=== PATIENT | female | born 1990 | race Caucasian/White ===

== ENCOUNTER 2018-01-16 22:37 | Emergency (ER) | payer SELFPAY ==
[~2018-01-16] VITALS: Ht 154.9 cm; Wt 54.5 kg
[~2018-01-16 22:37] MED LIST: AMOXICILLIN500 MG OR; AMOXICILLIN500 MG PO; AURALGAN OT; CEPHALEXIN500 MG PO; CIPRO500 MG OR; CIPROFLOXACN500 MG PO; DEPO-PROVER150 MG/ML IM; DIVALPROEX250 M1 OR; FERROUS FUM324 MG OR; FLUOXETINE10 MG PO; FLUTICASONE50 MCG; IMITREX100 M1 PO; IMITREX25 MG PO; LAMICTAL100 MG PO; LORTAB 5 OR; LORTAB 7.5-3251 TAB PO; METHOCARBAM500 MG PO; METOPROL TAR25 MG PO; MOTRIN800 MG PO; NAPROSYN500 MG PO; NYSTATIN100000 M1 MT; PRENATA3 OR; PROMETHAZINE HC25 MG PO; PROVENTIL HFA IN; TOPIRAMATE50 MG PO; TRAMADOL HCL50 MG PO; TRAZODONE50 MG PO; TRIMOX500 MG PO; ULTRAM50 MG OR; ULTRAM50 MG PO; VISTARIL 50MG C50 M1 PO; ZOFRAN ODT4 MG OR; [UNRECOGNIZED DRUG - REMARK]
[2018-01-16 23:00] LABS: HEMATOCRIT 36.9 % (37.0-47.0); HEMOGLOBIN 12.7 g/dl (12.0-16.0); IMMATURE GRANULOCYTES 0.3 % (0.0-5.0); MEAN CELL VOLUME 87.2 fL CALC (80.0-100.0); MEAN CORPUSCULAR HGB CONC 34.4 g/L CALC (32.0-36.0); NEUT# 10.98 thou/uL (2.00-7.15); RED BLOOD COUNT 4.23 mill/uL (4.20-5.60); RED CELL DISTRI WIDTH 12.2 % (11.5-15.5)
[2018-01-16 23:13] LABS: ALBUMIN 4.1 g/dL (3.2-5.0); AMYLASE 46 u/l (30-110); ANION GAP 12 (6-22 (CALC)); BILIRUBIN, TOTAL 0.5 mg/dL (0.0-1.4); BUN 12 mg/dL (7-17); BUN/CREATININE RATIO 17 (12-20 (CALC)); CARBON DIOXIDE 26 mmol/l (22-30); CHLORIDE 103 mmol/l (95-108); CREATININE 0.7 mg/dL (0.5-1.0); GFR > 60 ML/MIN (>=60 (CALC)); GFR FOR AFR.AMER. > 60 ML/MIN (>=60 (CALC)); LIPASE 87 u/l (23-300); SGOT/AST 30 u/l (14-36); SGPT/ALT 37 u/l (9-52); SODIUM 137 mmol/l (137-146); TOTAL PROTEIN 7.2 g/dL (6.3-8.2)
[2018-01-16 23:14] LABS: ALKALINE PHOSPHATASE 113 u/l (38-126)
[2018-01-16 23:35] LABS: URINE BILIRUBIN - DIPSTICK NEGATIVE (NEGATIVE); URINE BLOOD DIPSTICK NEGATIVE (NEGATIVE); URINE CLARITY SL CLOUDY; URINE COLOR YELLOW; URINE GLUCOSE - DIPSTICK NEGATIVE (NEGATIVE); URINE KETONE NEGATIVE (NEGATIVE); URINE LEUK ESTERASE TRACE (NEGATIVE); URINE NITRITE - DIPSTICK NEGATIVE (Negative); URINE PROTEIN - DIPSTICK NEGATIVE (NEG-TRACE); URINE UROBILINOGEN - DIPSTICK 0.2 E.U./dL (0.2)
[2018-01-16 23:40] LABS: BARBITURATES NEGATIVE (NEGATIVE); COCAINE NEGATIVE (NEGATIVE); METHADONE NEGATIVE (NEGATIVE); OXCYCODONE NEGATIVE (NEGATIVE); TETRAHYDROCANNABIONOL POSITIVE (NEGATIVE); TRICYLIC ANTIDEPRESSANTS NEGATIVE (NEGATIVE)
[2018-01-17] MEDS ORDERED: CIPROFLOXACN500 MG PO (03:43)
[2018-01-17] MEDS ORDERED: MAGNESIUM296 ML/BTL PO (03:43)
[2018-01-17] MEDS ORDERED: TRAMADOL HCL50 MG PO (03:43)
[2018-01-17] MEDS ORDERED: METRONIDAZOL500 MG PO (03:43)
[2018-01-17 04:35] VITALS: BP 112/66
== END 2018-01-17 04:35 | disposition home or self-care (01) | DRG 392 ==
LOC: ED 22:37
PROVIDERS: Family Medicine
DX: K52.9 Noninfective gastroenteritis and colitis, unspecified (principal); K59.00 Constipation, unspecified; R10.11 Right upper quadrant pain; R11.0 Nausea; F17.210 Nicotine dependence, cigarettes, uncomplicated; N83.202 Unspecified ovarian cyst, left side; N83.201 Unspecified ovarian cyst, right side; K76.0 Fatty (change of) liver, not elsewhere classified
CPT/HCPCS: S0164

== ENCOUNTER 2018-01-20 16:21 | Emergency (ER) | payer SELFPAY ==
[~2018-01-20] VITALS: Ht 154.9 cm; Wt 55.0 kg
[~2018-01-20 16:21] MED LIST changes: +MAGNESIUM296 ML/BTL PO; +METRONIDAZOL500 MG PO
[2018-01-20 17:00] LABS: HEMATOCRIT 33.9 % (37.0-47.0); HEMOGLOBIN 11.5 g/dl (12.0-16.0); IMMATURE GRANULOCYTES 0.4 % (0.0-5.0); MEAN CELL VOLUME 88.5 fL CALC (80.0-100.0); MEAN CORPUSCULAR HGB CONC 33.9 g/L CALC (32.0-36.0); NEUT# 8.61 thou/uL (2.00-7.15); RED BLOOD COUNT 3.83 mill/uL (4.20-5.60)
[2018-01-20 17:13] LABS: ALBUMIN 3.6 g/dL (3.2-5.0); ALKALINE PHOSPHATASE 93 u/l (38-126); ANION GAP 13 (6-22 (CALC)); BILIRUBIN, TOTAL 0.2 mg/dL (0.0-1.4); BUN 10 mg/dL (7-17); BUN/CREATININE RATIO 14 (12-20 (CALC)); CARBON DIOXIDE 28 mmol/l (22-30); CHLORIDE 104 mmol/l (95-108); CREATININE 0.7 mg/dL (0.5-1.0); GFR > 60 ML/MIN (>=60 (CALC)); GFR FOR AFR.AMER. > 60 ML/MIN (>=60 (CALC)); LIPASE 75 u/l (23-300); POTASSIUM 3.7 mmol/l (3.5-5.1); SGOT/AST 20 u/l (14-36); SGPT/ALT 32 u/l (9-52); SODIUM 142 mmol/l (137-146); TOTAL PROTEIN 6.5 g/dL (6.3-8.2)
[2018-01-20] MEDS ORDERED: CIPROFLOXACN500 MG PO (18:27)
[2018-01-20] MEDS ORDERED: BENTYL10 MG PO (18:27)
[2018-01-20] MEDS ORDERED: TORADOL PO (18:27)
[2018-01-20 18:56] VITALS: BP 111/64
== END 2018-01-20 18:56 | disposition home or self-care (01) | DRG 392 ==
LOC: ED 16:21
PROVIDERS: Emergency Medicine
DX: R10.84 Generalized abdominal pain (principal); I10 Essential (primary) hypertension; J45.909 Unspecified asthma, uncomplicated; Z91.14 Patient's other noncompliance with medication regimen; F17.210 Nicotine dependence, cigarettes, uncomplicated
CPT/HCPCS: Q9967

== ENCOUNTER 2018-04-19 17:03 | Emergency (ER) | payer SELFPAY ==
[~2018-04-19] VITALS: Ht 154.9 cm; Wt 65.0 kg
[~2018-04-19 17:03] MED LIST changes: +BENTYL10 MG PO; +TORADOL PO
[2018-04-19] MEDS ORDERED: CLEOCIN300 MG PO (17:24)
[2018-04-19] MEDS ORDERED: TORADOL PO (17:25)
[2018-04-19 17:38] VITALS: BP 114/65
== END 2018-04-19 17:38 | disposition home or self-care (01) | DRG 603 ==
LOC: ED 17:03
DX: L02.12 Furuncle of neck (principal); I10 Essential (primary) hypertension; J45.909 Unspecified asthma, uncomplicated; F17.200 Nicotine dependence, unspecified, uncomplicated

== ENCOUNTER 2018-08-19 16:12 | Emergency (ER) | payer SELFPAY ==
[~2018-08-19] VITALS: Ht 154.9 cm; Wt 55.0 kg
[~2018-08-19 16:12] MED LIST changes: +CLEOCIN300 MG PO
[2018-08-19 16:46] VITALS: BP 115/65
== END 2018-08-19 18:25 | disposition left against medical advice (07) | DRG 951 ==
LOC: ED 16:12 → LWOBS 18:24
DX: Z91.19 Patient's noncompliance with other medical treatment and regimen (principal)

== ENCOUNTER 2018-09-10 02:31 | Emergency (ER) | payer SELFPAY ==
[~2018-09-10] VITALS: Ht 154.9 cm; Wt 52.3 kg
[2018-09-10] MEDS ORDERED: VENTOLIN HFA IN (02:46)
[2018-09-10 03:20] LABS: HEMATOCRIT 38.2 % (37.0-47.0); HEMOGLOBIN 12.8 g/dl (12.0-16.0); IMMATURE GRANULOCYTES 0.2 % (0.0-5.0); MEAN CELL VOLUME 86.6 fL CALC (80.0-100.0); MEAN CORPUSCULAR HGB CONC 33.5 g/L CALC (32.0-36.0); NEUT# 6.15 thou/uL (2.00-7.15); RED BLOOD COUNT 4.41 mill/uL (4.20-5.60); RED CELL DISTRI WIDTH 12.5 % (11.5-15.5)
[2018-09-10 03:34] LABS: ALBUMIN 4.1 g/dL (3.2-5.0); ALKALINE PHOSPHATASE 92 u/l (38-126); AMYLASE 45 u/l (30-110); ANION GAP 10 (6-22 (CALC)); BILIRUBIN, TOTAL 0.2 mg/dL (0.0-1.4); BUN 14 mg/dL (7-17); BUN/CREATININE RATIO 19 (12-20 (CALC)); CARBON DIOXIDE 26 mmol/l (22-30); CHLORIDE 106 mmol/l (95-108); CREATININE 0.7 mg/dL (0.5-1.0); GFR > 60 ML/MIN (>=60 (CALC)); GFR FOR AFR.AMER. > 60 ML/MIN (>=60 (CALC)); LIPASE 125 u/l (23-300); POTASSIUM 3.5 mmol/l (3.5-5.1); SGOT/AST 26 u/l (14-36); SODIUM 139 mmol/l (137-146); TOTAL PROTEIN 6.6 g/dL (6.3-8.2)
[2018-09-10 05:46] LABS: URINE BILIRUBIN - DIPSTICK NEGATIVE (NEGATIVE); URINE BLOOD DIPSTICK NEGATIVE (NEGATIVE); URINE COLOR YELLOW; URINE GLUCOSE - DIPSTICK NEGATIVE (NEGATIVE); URINE KETONE NEGATIVE (NEGATIVE); URINE PH 7.5 (4.5-8.0); URINE PROTEIN - DIPSTICK NEGATIVE (NEG-TRACE); URINE UROBILINOGEN - DIPSTICK 0.2 E.U./dL (0.2)
[2018-09-10 05:50] LABS: URINE LEUK ESTERASE SMALL (NEGATIVE); URINE NITRITE - DIPSTICK POSITIVE (Negative)
[2018-09-10 05:52] LABS: BARBITURATES NEGATIVE (NEGATIVE); COCAINE NEGATIVE (NEGATIVE); METHADONE NEGATIVE (NEGATIVE); OXCYCODONE NEGATIVE (NEGATIVE); TETRAHYDROCANNABIONOL POSITIVE (NEGATIVE); TRICYLIC ANTIDEPRESSANTS NEGATIVE (NEGATIVE)
[2018-09-10 05:54] LABS: URINE BACTERIA MODERATE hpf; URINE RBC 0-2 RBC/hpf (0-5); URINE SQUAMOUS EPITHELIAL CELL MODERATE EPI/hpf (0-FEW)
[2018-09-10] MEDS ORDERED: PHENERGAN25 MG/TAB PO (05:57)
[2018-09-10 06:13] VITALS: BP 123/75
== END 2018-09-10 06:13 | disposition home or self-care (01) | DRG 392 ==
LOC: ED 02:31
PROVIDERS: Family Medicine
DX: K52.9 Noninfective gastroenteritis and colitis, unspecified (principal); F15.288 Other stimulant dependence with other stimulant-induced disorder; R10.84 Generalized abdominal pain; R11.2 Nausea with vomiting, unspecified; F17.210 Nicotine dependence, cigarettes, uncomplicated

== ENCOUNTER 2018-10-06 16:34 | Emergency (ER) | payer SELFPAY ==
[~2018-10-06] VITALS: Ht 154.9 cm; Wt 53.0 kg
[~2018-10-06 16:34] MED LIST changes: +PHENERGAN25 MG/TAB PO; +VENTOLIN HFA IN
[2018-10-06 17:28] LABS: HEMATOCRIT 38.2 % (37.0-47.0); HEMOGLOBIN 13.1 g/dl (12.0-16.0); IMMATURE GRANULOCYTES 0.3 % (0.0-5.0); MEAN CELL VOLUME 85.8 fL CALC (80.0-100.0); MEAN CORPUSCULAR HGB 29.4 pG CALC (26.0-32.0); MEAN CORPUSCULAR HGB CONC 34.3 g/L CALC (32.0-36.0); NEUT# 9.38 thou/uL (2.00-7.15); RED BLOOD COUNT 4.45 mill/uL (4.20-5.60); RED CELL DISTRI WIDTH 12.3 % (11.5-15.5)
[2018-10-06 17:46] LABS: ALBUMIN 4.3 g/dL (3.2-5.0); ALKALINE PHOSPHATASE 97 u/l (38-126); ANION GAP 16 (6-22 (CALC)); BILIRUBIN, TOTAL 0.6 mg/dL (0.0-1.4); BUN 15 mg/dL (7-17); BUN/CREATININE RATIO 25 (12-20 (CALC)); CARBON DIOXIDE 23 mmol/l (22-30); CHLORIDE 102 mmol/l (95-108); CREATININE 0.6 mg/dL (0.5-1.0); ETHYL ALCOHOL 0 mg/dl (0-30); GFR > 60 ML/MIN (>=60 (CALC)); GFR FOR AFR.AMER. > 60 ML/MIN (>=60 (CALC)); POTASSIUM 3.5 mmol/l (3.5-5.1); SGOT/AST 20 u/l (14-36); SODIUM 138 mmol/l (137-146)
[2018-10-06 20:40] LABS: URINE BILIRUBIN - DIPSTICK NEGATIVE (NEGATIVE); URINE BLOOD DIPSTICK NEGATIVE (NEGATIVE); URINE COLOR YELLOW; URINE GLUCOSE - DIPSTICK NEGATIVE (NEGATIVE); URINE KETONE TRACE mg/dL (NEGATIVE); URINE LEUK ESTERASE NEGATIVE (NEGATIVE); URINE NITRITE - DIPSTICK NEGATIVE (Negative); URINE PH 6.5 (4.5-8.0); URINE PROTEIN - DIPSTICK NEGATIVE (NEG-TRACE); URINE SPECIFIC GRAVITY <=1.005
[2018-10-06 20:43] LABS: COCAINE NEGATIVE (NEGATIVE)
[2018-10-06 20:44] LABS: BARBITURATES NEGATIVE (NEGATIVE); METHADONE NEGATIVE (NEGATIVE); OXCYCODONE NEGATIVE (NEGATIVE); TETRAHYDROCANNABIONOL NEGATIVE (NEGATIVE); TRICYLIC ANTIDEPRESSANTS NEGATIVE (NEGATIVE)
[2018-10-06] MEDS ORDERED: DOXYCYCL HYC100 MG PO (20:48)
[2018-10-06 21:36] VITALS: BP 110/63
== END 2018-10-06 21:32 | disposition home or self-care (01) | DRG 603 ==
LOC: ED 16:34
PROVIDERS: Family Medicine
PROC: 0H91XZZ Drainage of Face Skin, External Approach (ICD-10-PCS; principal; 2018-10-06)
DX: L03.213 Periorbital cellulitis (principal); L02.01 Cutaneous abscess of face; B95.62 Methicillin resistant Staphylococcus aureus infection as the cause of diseases classified elsewhere; S46.912A Strain of unspecified muscle, fascia and tendon at shoulder and upper arm level, left arm, initial encounter; M25.512 Pain in left shoulder; M54.2 Cervicalgia; M54.6 Pain in thoracic spine; M54.5 Low back pain; F19.10 Other psychoactive substance abuse, uncomplicated; F17.210 Nicotine dependence, cigarettes, uncomplicated; R50.9 Fever, unspecified; S00.83XA Contusion of other part of head, initial encounter; S50.12XA Contusion of left forearm, initial encounter; S40.022A Contusion of left upper arm, initial encounter; S60.222A Contusion of left hand, initial encounter; S40.012A Contusion of left shoulder, initial encounter; Y09 Assault by unspecified means; Y92.009 Unspecified place in unspecified non-institutional (private) residence as the place of occurrence of the external cause

== ENCOUNTER 2021-08-25 06:48 | Emergency (ER) | payer SELFPAY ==
[~2021-08-25] VITALS: Ht 154.9 cm; Wt 54.0 kg
[~2021-08-25 06:48] MED LIST changes: +DOXYCYCL HYC100 MG PO
[2021-08-25 07:34] LABS: HEMATOCRIT 39.4 % (37.0-47.0); IMMATURE GRANULOCYTES 0.1 % (0.0-5.0); MEAN CELL VOLUME 89.7 fL CALC (80.0-100.0); MEAN CORPUSCULAR HGB 29.6 pG CALC (26.0-32.0); NEUT# 11.38 thou/uL (2.00-7.15); RED BLOOD COUNT 4.39 mill/uL (4.20-5.60); RED CELL DISTRI WIDTH 12.6 % (11.5-15.5)
[2021-08-25 07:45] LABS: URINE BILIRUBIN - DIPSTICK NEGATIVE (NEGATIVE); URINE BLOOD DIPSTICK NEGATIVE (NEGATIVE); URINE COLOR YELLOW; URINE GLUCOSE - DIPSTICK NEGATIVE (NEGATIVE); URINE KETONE NEGATIVE (NEGATIVE); URINE PROTEIN - DIPSTICK NEGATIVE (NEG-TRACE); URINE SPECIFIC GRAVITY 1.015; URINE UROBILINOGEN - DIPSTICK 0.2 E.U./dL (0.2)
[2021-08-25 07:52] LABS: ALKALINE PHOSPHATASE 90 u/l (38-126); ANION GAP 13 (6-22 (CALC)); BILIRUBIN, TOTAL 0.4 mg/dL (0.0-1.4); BUN 9 mg/dL (7-17); BUN/CREATININE RATIO 16 (12-20 (CALC)); CARBON DIOXIDE 25 mmol/l (22-30); CHLORIDE 102 mmol/l (95-108); CREATININE 0.6 mg/dL (0.5-1.0); GFR > 60 ML/MIN (>=60 (CALC)); GFR FOR AFR.AMER. > 60 ML/MIN (>=60 (CALC)); LIPASE 33 u/l (23-300); POTASSIUM 3.7 mmol/l (3.5-5.1); SGOT/AST 27 u/l (14-36); SODIUM 137 mmol/l (137-146); TOTAL PROTEIN 6.8 g/dL (6.3-8.2)
[2021-08-25 07:52] LABS: URINE LEUK ESTERASE SMALL (NEGATIVE); URINE NITRITE - DIPSTICK POSITIVE (Negative)
[2021-08-25 07:54] LABS: URINE BACTERIA MANY hpf; URINE SQUAMOUS EPITHELIAL CELL FEW EPI/hpf (0-FEW)
[2021-08-25] MEDS ORDERED: BL IBUPROFEN200 MG PO (09:59)
[2021-08-25] MEDS ORDERED: OMNI-PAC300 MG PO (11:43)
[2021-08-25 11:54] VITALS: BP 98/64
== END 2021-08-25 12:02 | disposition home or self-care (01) | DRG 690 ==
LOC: ED 06:48
PROVIDERS: Family Medicine
DX: N39.0 Urinary tract infection, site not specified (principal); N83.202 Unspecified ovarian cyst, left side; I10 Essential (primary) hypertension; J45.909 Unspecified asthma, uncomplicated; F17.210 Nicotine dependence, cigarettes, uncomplicated; B96.20 Unspecified Escherichia coli [E. coli] as the cause of diseases classified elsewhere
CPT/HCPCS: Q9967

== ENCOUNTER 2021-12-22 19:15 | Emergency (ER) | payer SELFPAY ==
[2021-12-22] VITALS (7 sets, daily range): BP systolic 115–142; BP diastolic 54–90
[~2021-12-22] VITALS: Ht 154.9 cm; Wt 60.0 kg
[~2021-12-22 19:15] MED LIST changes: +BL IBUPROFEN200 MG PO; +OMNI-PAC300 MG PO
[2021-12-22 20:31] LABS: HEMATOCRIT 39.9 % (37.0-47.0); HEMOGLOBIN 13.3 g/dl (12.0-16.0); IMMATURE GRANULOCYTES 0.1 % (0.0-5.0); MEAN CELL VOLUME 90.3 fL CALC (80.0-100.0); MEAN CORPUSCULAR HGB 30.1 pG CALC (26.0-32.0); MEAN CORPUSCULAR HGB CONC 33.3 g/dL CAL (32.0-36.0); NEUT# 10.43 thou/uL (2.00-7.15); RED BLOOD COUNT 4.42 mill/uL (4.20-5.60); RED CELL DISTRI WIDTH 12.2 % (11.5-15.5)
[2021-12-22 20:48] LABS: ALKALINE PHOSPHATASE 75 u/l (38-126); ANION GAP 10 (6-22 (CALC)); BILIRUBIN, TOTAL 0.1 mg/dL (0.0-1.4); BUN 15 mg/dL (7-17); BUN/CREATININE RATIO 17 (12-20 (CALC)); CARBON DIOXIDE 22 mmol/l (22-30); CHLORIDE 109 mmol/l (95-108); CREATININE 0.8 mg/dL (0.5-1.0); GFR FOR AFR.AMER. > 60 ML/MIN (>=60 (CALC)); GFR OTHER RACES > 60 ML/MIN (>=60 (CALC)); POTASSIUM 3.9 mmol/l (3.5-5.1); SGOT/AST 24 u/l (14-36); SODIUM 137 mmol/l (137-146); TOTAL PROTEIN 6.5 g/dL (6.3-8.2)
[2021-12-22] MEDS ORDERED: AMOX/K CLAV875 M1 PO (22:26)
[2021-12-22] MEDS ORDERED: HYDROCO/APAP1 TA9 PO (22:29)
== END 2021-12-22 23:45 | disposition home or self-care (01) | DRG 605 ==
LOC: ED 19:15
PROVIDERS: Family Medicine
PROC: 0HQDXZZ Repair Right Lower Arm Skin, External Approach (ICD-10-PCS; principal; 2021-12-22)
DX: S51.851A Open bite of right forearm, initial encounter (principal); I10 Essential (primary) hypertension; J45.909 Unspecified asthma, uncomplicated; F17.200 Nicotine dependence, unspecified, uncomplicated; W54.0XXA Bitten by dog, initial encounter; Y92.007 Garden or yard of unspecified non-institutional (private) residence as the place of occurrence of the external cause
CPT/HCPCS: Q9967

== ENCOUNTER 2022-04-09 15:48 | Emergency (ER) | payer SELFPAY ==
[~2022-04-09] VITALS: Ht 154.9 cm; Wt 62.0 kg
[~2022-04-09 15:48] MED LIST changes: +AMOX/K CLAV875 M1 PO; +HYDROCO/APAP1 TA9 PO
[2022-04-09 15:59] VITALS: BP 114/77
[2022-04-09] MEDS ORDERED: BACTRIM DS1 TAB PO (16:03)
[2022-04-09] MEDS ORDERED: MOTRIN800 MG PO (16:03)
[2022-04-09 16:15] VITALS: BP 114/77
== END 2022-04-09 16:21 | disposition home or self-care (01) | DRG 603 ==
LOC: ED 15:48
DX: L02.412 Cutaneous abscess of left axilla (principal)

== ENCOUNTER → 2022-07-13 | Emergency (ER) | payer SELFPAY ==
[~2022-07-13] VITALS: Ht 154.9 cm; Wt 59.0 kg
[~2022-07-13] MED LIST changes: +ACYCLOVIR800 MG PO; +BACTRIM DS1 TAB PO; +EC-NAPROXEN500 MG PO; +[UNRECOGNIZED DRUG - OTHER] XX
[2022-07-13 20:38] VITALS: BP 99/55
[2022-07-13 20:45] VITALS: BP 99/55
== END | disposition home or self-care (01) | DRG 951 ==
LOC: ED 20:13 → LWOBS 20:18
DX: Z53.21 Procedure and treatment not carried out due to patient leaving prior to being seen by health care provider (principal)

== ENCOUNTER 2022-07-16 16:31 | Emergency (ER) | payer SELFPAY ==
[2022-07-16] VITALS (9 sets, daily range): BP systolic 94–113; BP diastolic 31–65
[~2022-07-16] VITALS: Ht 154.9 cm; Wt 54.0 kg
[~2022-07-16 16:31] MED LIST changes: -ACYCLOVIR800 MG PO; -EC-NAPROXEN500 MG PO; -[UNRECOGNIZED DRUG - OTHER] XX
[2022-07-16] MEDS ORDERED: BACTRIM DS1 TAB PO (18:22)
[2022-07-16] MEDS ORDERED: OMNI-PAC300 MG PO (18:22)
[2022-07-16] MEDS ORDERED: [UNRECOGNIZED DRUG - OTHER] XX (18:22)
[2022-07-16] MEDS ORDERED: EC-NAPROXEN500 MG PO (18:22)
[2022-07-16] MEDS ORDERED: ACYCLOVIR800 MG PO (18:47)
== END 2022-07-16 20:20 | disposition home or self-care (01) | DRG 603 ==
LOC: ED 16:31
DX: L03.811 Cellulitis of head [any part, except face] (principal); L02.811 Cutaneous abscess of head [any part, except face]; K13.70 Unspecified lesions of oral mucosa

== ENCOUNTER 2022-11-08 19:16 | Emergency (ER) | payer SELFPAY ==
[2022-11-08] VITALS (8 sets, daily range): BP systolic 82–96; BP diastolic 44–64
[~2022-11-08] VITALS: Ht 154.9 cm; Wt 59.0 kg
[~2022-11-08 19:16] MED LIST changes: +ACYCLOVIR800 MG PO; +EC-NAPROXEN500 MG PO; +[UNRECOGNIZED DRUG - OTHER] XX
== END 2022-11-08 22:38 | disposition home or self-care (01) | DRG 563 ==
LOC: ED 19:16
DX: S53.401A Unspecified sprain of right elbow, initial encounter (principal); S20.212A Contusion of left front wall of thorax, initial encounter; S46.812A Strain of other muscles, fascia and tendons at shoulder and upper arm level, left arm, initial encounter; Y04.2XXA Assault by strike against or bumped into by another person, initial encounter